=== PATIENT | female | born 1990 | race Hispanic/Latino ===

== ENCOUNTER 2017-12-03 21:54 | Emergency (ER) | payer BC, OTHER ==
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
--- NOTE | 2017-12-04 08:54 | CR ---
Mandible: Four views of the mandible were obtained. Comparison: No prior study. No fracture or other bony abnormality is seen. Impression: 1. No abnormality is appreciated on mandible exam. Diagnostic code #1
== END 2017-12-03 23:58 | disposition home or self-care (01) ==
LOC: JD.ED 21:54
DX: S16.1XXA Strain of muscle, fascia and tendon at neck level, initial encounter (principal); S00.83XA Contusion of other part of head, initial encounter; S40.021A Contusion of right upper arm, initial encounter; I10 Essential (primary) hypertension; E11.9 Type 2 diabetes mellitus without complications; F41.9 Anxiety disorder, unspecified; F32.9 Major depressive disorder, single episode, unspecified; Z79.84 Long term (current) use of oral hypoglycemic drugs; Z87.891 Personal history of nicotine dependence; Y04.0XXA Assault by unarmed brawl or fight, initial encounter
CPT/HCPCS: 70110; 70110-26; 99283; 99284